=== PATIENT | female | born 1940 | race African-American/Black ===

== ENCOUNTER 2018-04-07 19:40 | Emergency (ER) | payer OTHER ==
[~2018-04-07] VITALS: Ht 157.5 cm; Wt 75.7 kg
--- NOTE | 2018-04-07 20:36 | Diagnostic Imaging Report ---
History:Headache Comparison studies: None Technique: Axial images were obtained from the skull base to the vertex. Coronal and sagittal images reconstructed from the axial data. Intravenous contrast: None Findings: Scalp/skull: No abnormalities. Extra-axial spaces: No masses. No fluid collections. Brain sulci: Mildly prominent. Ventricles: Mild compensatory dilatation. No hydrocephalus. Parenchyma: Follow-up hypodensities in the supratentorial white matter are small vessel ischemic changes. No masses, hemorrhage, acute or chronic cortical vascular insults. Sellar/suprasellar region: No abnormalities. Craniocervical junction: Patent foramen magnum. No Chiari one malformation. Incidental findings: Focal atherosclerotic calcifications in the carotid siphons . Impression: 1. Mild supratentorial white matter small vessel ischemic changes. 2. Otherwise, no intracranial abnormalities. Signed by: Dr. Ford Montesinos M.D. on 04/07/2018 8:32 PM
[2018-04-07 20:42] LABS: BASOPHILS % 0.4 % (0.0-1.0); EOSINOPHILS # (AUTO) 0.4 (0.0-0.4); EOSINOPHILS % 6.9 % (0.0-6.0); HEMATOCRIT 35.3 % (34.2-44.1); HEMOGLOBIN 10.9 g/dL (12.0-16.0); LYMPHOCYTES # (AUTO) 1.9 (1.0-3.2); LYMPHOCYTES % 34.3 % (18.0-39.1); MEAN CORPUSCULAR HEMOGLOBIN 25.6 pg (28-32); MEAN CORPUSCULAR HGB CONC 30.9 g/dL (31-35); MEAN CORPUSCULAR VOLUME 82.9 fL (81-99); MONOCYTES # (AUTO) 0.4 (0.2-0.8); MONOCYTES % 6.7 % (4.4-11.3); NEUTROPHILS # (AUTO) 2.8 (2.1-6.9); NEUTROPHILS % 51.5 % (38.7-80.0); PLATELET COUNT 202 x10e3/uL (140-360); RED BLOOD COUNT 4.26 x10e6/uL (3.6-5.1)
--- NOTE | 2018-04-07 20:42 | Diagnostic Imaging Report ---
History: Fall, neck pain Comparison studies: None Technique: Axial images were obtained through the cervical region.. Coronal and sagittal images reconstructed from the axial data.. Intravenous contrast: None Findings: Fractures: None. Soft tissues: No gross abnormalities. Atlantoaxial articulation: Intact. Alignment: Slight reversal of the usual lordosis is centered at C5. No scoliosis. Cervicomedullary junction: No abnormalities. The foramen magnum is patent. Vertebrae: Bones mildly demineralized. No infection or neoplasm. Degenerative changes: Mildly degenerated discs from C3 to C6. Moderate left facet arthrosis at C2-3 does not result in foraminal stenosis Foraminal stenosis, mild right, severe left at at C3-4 and C4-5 due to facet arthrosis, moderate bilaterally at C5-6 due uncoarthrosis. Moderate spinal canal stenosis at C3-4 and C5-6 due to disc osteophyte complexes. IMPRESSION: 1. No acute abnormalities. 2. Cannot adequately evaluate for ligament, spinal cord and or vascular abnormalities. 3. Degenerative changes as described Signed by: Dr. Ford Montesinos M.D. on 04/07/2018 8:38 PM
[2018-04-07 21:17] LABS: ALBUMIN/GLOBULIN RATIO 1.1 (0.8-2.0); ANION GAP 12.6 mmol/L (8-16); CREATININE, SERUM 1.2 mg/dL (0.57-1.11); POTASSIUM 3.6 mmol/L (3.5-5.1)
[2018-04-07 21:23] LABS: CREATINE KINASE MB 1.3 ng/mL (0-5.0)
--- NOTE | 2018-04-07 21:46 | Diagnostic Imaging Report ---
SHOULDER LEFT COMPLETE HISTORY: Shoulder pain for 2 months COMPARISON: None FINDINGS: Bones: No displaced fracture. There is lateral downsloping of the acromion with sclerosis at the lateral margin and at the insertion of the rotator cuff humeral component Osseous alignment is within normal limits. Joints: The joint spaces are well-maintained. Soft tissues: The soft tissues appear unremarkable. IMPRESSION: 1. No acute radiographic abnormality. 2. Lateral downsloping of the acromion and sclerotic changes are compatible with rotator cuff impingement Signed by: Dr. Gavino Abrams M.D. on 04/07/2018 9:42 PM
== END 2018-04-07 22:19 | disposition home or self-care (01) ==
LOC: ER 19:40
DX: M54.2 Cervicalgia (principal); M54.12 Radiculopathy, cervical region; M75.42 Impingement syndrome of left shoulder; R01.1 Cardiac murmur, unspecified
CPT/HCPCS: 36415; 70450; 72125; 80053; 82550; 82553; 84484; 85025; 93005; 99284